=== PATIENT | female | born 1985 | race African-American/Black ===

== ENCOUNTER 2018-11-19 20:30 | Emergency (ER) | payer OTHER ==
[~2018-11-19] VITALS: Ht 165.1 cm; Wt 104.3 kg
[2018-11-19 20:50] VITALS: BP 167/102
[2018-11-19 21:15] LABS: BILIRUBIN,URINE NEGATIVE (NEG); CLARITY,URINE CLEAR; COLOR,URINE YELLOW; NITRITE,URINE NEGATIVE (NEG); PH,URINE 5.5; PROTEIN,URINE NEGATIVE (NEG-TRACE)
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
[2018-11-19 21:25] LABS: BACTERIA,URINE MOD /HPF (0-FEW); SQUAMOUS EPITHELIAL CELL,UR MOD /LPF; WBC,URINE 20-40 /HPF (0-4)
[2018-11-19] MEDS ORDERED: KETOROLAC 15 MG/ML VIAL. IV ONE (21:30)
[2018-11-19] MEDS ORDERED: IV NORMAL SALINE 1000ML BAG 1,000 ML IV ONE (21:30)
[2018-11-19] MEDS ORDERED: ONDANSETRON PF 4 MG/2 ML VIAL. IV ONE (21:30)
[2018-11-19 21:59] LABS: BASO % 0 % (0-3); EOS % 0 % (0-3); HEMATOCRIT 27.6 % (36.0-47.0); HEMOGLOBIN 8.6 g/dL (12.0-15.5); LYMPH # 2.5 x10^3/uL (1.0-4.8); LYMPH % 21 % (24-48); MEAN CORPUSCULAR HEMOGLOBIN 18 pg (25-35); MEAN CORPUSCULAR HGB CONC 31 g/dL (31-37); MEAN CORPUSCULAR VOLUME 59 fL (79-100); MONO % 9 % (0-9); NEUT # 8.5 x10^3uL (1.8-7.7); NEUT % 70 % (31-73); PLATELET COUNT 418 x10^3/uL (140-400); RED BLOOD COUNT 4.69 x10^6/uL (3.50-5.40); RED CELL DISTRIBUTION WIDTH 17.9 % (11.5-14.5); WHITE BLOOD COUNT 12.1 x10^3/uL (4.0-11.0)
[2018-11-19 22:08] LABS: CALCIUM 9.3 mg/dL (8.5-10.1); GFR 77.3; POTASSIUM 3.4 mmol/L (3.5-5.1); PROTHROMBIN TIME PATIENT 14.5 SEC (11.7-14.0)
[2018-11-19 22:14] LABS: ALBUMIN 3.7 g/dL (3.4-5.0); ALBUMIN/GLOBULIN RATIO 0.9 (1.0-1.7); TOTAL BILIRUBIN 0.4 mg/dL (0.2-1.0); TOTAL PROTEIN 7.9 g/dL (6.4-8.2)
[2018-11-19 22:15] LABS: U PREG PATIENT NEGATIVE (NEG)
[2018-11-19] MEDS ORDERED: CONTRAST GIVEN. MC PRN (22:30)
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
[2018-11-19 22:52] LABS: ANISOCYTOSIS SLIGHT; HYPOCHROMIA MOD; PLT ESTIMATE INCREASED (ADEQUATE)
[2018-11-19 22:53] LABS: MICROCYTOSIS MARKED
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
[2018-11-19] MEDS ORDERED: cefTRIAXone IV Push 1 GM VIAL. IVP ONE (23:00)
[2018-11-19] MEDS ORDERED: IOHEXOL 300 MG/ML 100ML VIAL. IV ONE (23:00)
[2018-11-19] MEDS ORDERED: CYCL10TA2 PO (23:08)
[2018-11-19] MEDS ORDERED: IBUP-1060 PO (23:08)
[2018-11-19] MEDS ORDERED: CEPH-264 PO (23:08)
[2018-11-19] MEDS ORDERED: CYCLOBENZAPRINE 10 MG TABLET. PO ONE (23:30)
== END 2018-11-19 23:38 | disposition home or self-care (01) ==
LOC: ER 20:30
DX: M25.572 Pain in left ankle and joints of left foot (principal); M79.672 Pain in left foot; R60.0 Localized edema; N12 Tubulo-interstitial nephritis, not specified as acute or chronic; R10.84 Generalized abdominal pain; M54.5 Low back pain; V43.52XA Car driver injured in collision with other type car in traffic accident, initial encounter; Y93.89 Activity, other specified; Y92.410 Unspecified street and highway as the place of occurrence of the external cause; Y99.8 Other external cause status
CPT/HCPCS: 36415; 73610; 74177; 80053; 81001; 81025; 85025; 85610; 85730; 96374; 96375; 99285; J0696; J1885; J2405; J7030; Q9967